=== PATIENT | male | born 1990 | race American Indian/Alaskan Native ===

== ENCOUNTER 2019-09-13 23:10 | Emergency (ER) | payer SELFPAY ==
[2019-09-13 23:19] VITALS: BP 128/83
== END 2019-09-14 02:00 | disposition left against medical advice (07) ==
LOC: ED 23:10
DX: R21 Rash and other nonspecific skin eruption (principal); Z53.21 Procedure and treatment not carried out due to patient leaving prior to being seen by health care provider